=== PATIENT | male | born 1980 | race Caucasian/White ===

== ENCOUNTER 2018-08-02 21:20 | Inpatient (IN) | payer SELFPAY ==
[~2018-08-02] VITALS: Ht 182.9 cm; Wt 86.2 kg
[2018-08-02 21:43] LABS: BASOPHILS # (AUTO) 0.1 (0.0-0.1); BASOPHILS % 0.4 % (0.0-1.0); HEMATOCRIT 43.4 % (38.2-49.6); HEMOGLOBIN 13.9 g/dL (14.0-18.0); LYMPHOCYTES # (AUTO) 2.3 (1.0-3.2); MEAN CORPUSCULAR HEMOGLOBIN 29.6 pg (28-32); MEAN CORPUSCULAR VOLUME 92.3 fL (81-99); MONOCYTES % 4.1 % (4.4-11.3); NEUTROPHILS # (AUTO) 19.5 (2.1-6.9); NEUTROPHILS % 84.4 % (38.7-80.0); PLATELET COUNT 415 x10e3/uL (140-360); RED CELL DISTRIBUTION WIDTH 12.4 % (11.7-14.4)
[2018-08-02] MEDS ORDERED: SODIUM CHLORIDE 0.9% 1000ML 1,000 ML IV ONE (21:45)
[2018-08-02 22:16] LABS: ALANINE AMINOTRANSFERASE 31 IU/L (0-55); ALBUMIN 3.9 g/dL (3.5-5.0); ALBUMIN/GLOBULIN RATIO 1.3 (0.8-2.0); ALKALINE PHOSPHATASE 117 IU/L (40-150); ANION GAP 37.5 mmol/L (8-16); BLOOD UREA NITROGEN 37 mg/dL (7-26); BUN/CREATININE RATIO 23 (6-25); CALCIUM 8.9 mg/dL (8.4-10.2); CHLORIDE 91 mmol/L (98-107); CREATINE KINASE 95 IU/L (30-200); CREATININE, SERUM 1.62 mg/dL (0.72-1.25); EST GLOMERULAR FILTRATION RATE 48 ML/MIN (60-); SODIUM 127 mmol/L (136-145)
[2018-08-02 22:23] LABS: CARBON DIOXIDE 5 mmol/L (22-29); POTASSIUM 6.5 mmol/L (3.5-5.1)
[2018-08-02] MEDS ORDERED: POTASSIUM CHLORIDE 20MEQ/100ML 200 ML IV PRN (22:30)
[2018-08-02] MEDS ORDERED: INSULIN DETEMIR 100 UNIT/ML PEN SQ PRN (22:30)
[2018-08-02] MEDS ORDERED: MAGNESIUM SULF 1GRAM/DEXTROSE 100 ML IV PRN (22:30)
[2018-08-02] MEDS ORDERED: INSULIN REGULAR, HUMAN 3ML VL 100 UNIT in SODIUM CHLORIDE 0.9% 99 ML IV SCH ×2 (22:30)
[2018-08-02] MEDS: SODIUM CHLORIDE 0.9% 1000ML 1,000 ML IV SCH (22:50)
--- NOTE | 2018-08-02 23:12 | Diagnostic Imaging Report ---
EXAM: CHEST SINGLE (PORTABLE), AP 1 view INDICATION: Shortness of breath COMPARISON: None FINDINGS: LINES/TUBES: None LUNGS: No consolidations or edema. PLEURA: No effusions or pneumothorax. HEART AND MEDIASTINUM: Normal size and contour. BONES AND SOFT TISSUES: No acute findings. IMPRESSION: No acute thoracic abnormality. Signed by: Dr. Elena Collazo M.D. on 08/02/2018 11:09 PM
[2018-08-02 23:22] LABS: BACTERIA,URINE FEW /HPF; BILIRUBIN,URINE NEGATIVE (NEGATIVE); CLARITY,URINE CLEAR (CLEAR); COLOR,URINE YELLOW (YELLOW); EPITHELIAL CELLS,URINE RARE /LPF; KETONES,URINE 3+ (NEGATIVE); LEUKOCYTE ESTERASE ,URINE NEGATIVE (NEGATIVE); NITRITE,URINE NEGATIVE (NEGATIVE); PROTEIN,URINE DIPSTICK NEGATIVE (NEGATIVE); URINE UROBILINOGEN 0.2 mg/dL (0.2 - 1)
[2018-08-02] MEDS ORDERED: ONDANSETRON HCL INJ 2 MG/ML VIAL IV PRN (23:45)
[2018-08-02] MEDS: CEFTRIAXONE SOD 1 GM VIAL IV SCH (23:54)
[2018-08-03] VITALS (13 sets, daily range): BP systolic 125–155; BP diastolic 72–109
[2018-08-03 00:09] LABS: ANION GAP 33.8 mmol/L (8-16); CALCIUM 8.5 mg/dL (8.4-10.2); CREATININE, SERUM 1.61 mg/dL (0.72-1.25); MAGNESIUM 2.5 MG/DL (1.3-2.1); POTASSIUM 5.8 mmol/L (3.5-5.1)
[2018-08-03] MEDS: SODIUM CHLORIDE 0.9% 1000ML 1,000 ML IV SCH ×3 (02:35→10:22)
[2018-08-03 05:06] LABS: ANION GAP 18.3 mmol/L (8-16); BLOOD UREA NITROGEN 30 mg/dL (7-26); BUN/CREATININE RATIO 23 (6-25); CALCIUM 8.5 mg/dL (8.4-10.2); CARBON DIOXIDE 16 mmol/L (22-29); CHLORIDE 105 mmol/L (98-107); CREATININE, SERUM 1.29 mg/dL (0.72-1.25); EST GLOMERULAR FILTRATION RATE > 60 ML/MIN (60-); GLUCOSE 264 mg/dL (74-118); POTASSIUM 4.3 mmol/L (3.5-5.1); SODIUM 135 mmol/L (136-145)
[2018-08-03] MEDS: DEXTROSE 5%/0.45% SOD CHL 1,000 ML IV SCH ×4 (05:50→22:25)
[2018-08-03] MEDS: ACETAMINOPHEN 325 MG TAB PO PRN ×2 (08:38→22:39)
[2018-08-03 08:54] LABS: HEMATOCRIT 36.2 % (38.2-49.6); HEMOGLOBIN 12.2 g/dL (14.0-18.0); MEAN CORPUSCULAR HEMOGLOBIN 29.3 pg (28-32); MEAN CORPUSCULAR HGB CONC 33.7 g/dL (31-35); MEAN CORPUSCULAR VOLUME 86.8 fL (81-99); PLATELET COUNT 304 x10e3/uL (140-360); RED BLOOD COUNT 4.17 x10e6/uL (4.3-5.7); RED CELL DISTRIBUTION WIDTH 12.8 % (11.7-14.4)
[2018-08-03 09:13] LABS: ANION GAP 12.8 mmol/L (8-16); BLOOD UREA NITROGEN 27 mg/dL (7-26); BUN/CREATININE RATIO 22 (6-25); CALCIUM 8.6 mg/dL (8.4-10.2); CARBON DIOXIDE 19 mmol/L (22-29); CHLORIDE 109 mmol/L (98-107); CREATININE, SERUM 1.22 mg/dL (0.72-1.25); EST GLOMERULAR FILTRATION RATE > 60 ML/MIN (60-); GLUCOSE 104 mg/dL (74-118); MAGNESIUM 2.2 MG/DL (1.3-2.1); POTASSIUM 3.8 mmol/L (3.5-5.1); SODIUM 137 mmol/L (136-145)
[2018-08-03] MEDS ORDERED: DEXTROSE 50% SYRINGE 50 ML IV ONE (11:52)
[2018-08-03 13:30] LABS: ANION GAP 15.8 mmol/L (8-16); BLOOD UREA NITROGEN 23 mg/dL (7-26); BUN/CREATININE RATIO 21 (6-25); CALCIUM 7.9 mg/dL (8.4-10.2); CARBON DIOXIDE 19 mmol/L (22-29); CHLORIDE 105 mmol/L (98-107); CREATININE, SERUM 1.09 mg/dL (0.72-1.25); EST GLOMERULAR FILTRATION RATE > 60 ML/MIN (60-); GLUCOSE 131 mg/dL (74-118); MAGNESIUM 1.9 MG/DL (1.3-2.1); POTASSIUM 3.8 mmol/L (3.5-5.1); SODIUM 136 mmol/L (136-145)
[2018-08-03 13:47] LABS: ANISOCYTOSIS SLIGHT; HOWELL-JOLLY BODIES FEW; HYPOCHROMASIA SLIGHT; LYMPHOCYTES % (MANUAL) 19 % (19-48); MONOCYTES % (MANUAL) 3 % (3.4-9.0); NEUTROPHILS % (MANUAL) 77 % (40-74); PLATELET ESTIMATE ADEQUATE; RBC MORPHOLOGY COMMENT NORMAL
[2018-08-03 13:48] LABS: PLATELET MORPHOLOGY COMMENT NORMAL
[2018-08-03 13:58] LABS: CHOL/HDL RATIO 2.7 (3.9-4.7)
[2018-08-03 14:13] LABS: FREE T4 (FREE THYROXINE) 0.8 ng/dL (0.9-1.8); THYROID STIMULATING HORMONE 0.251 uIU/mL (0.350-4.940)
--- NOTE | 2018-08-03 14:59 | Consultation ---
DATE OF CONSULTATION: August 03, 2018 REASON FOR CONSULTATION: This patient has DKA, concern about sepsis. HISTORY OF PRESENT ILLNESS: This patient who is a 38-year-old white male with history of diabetes mellitus, comes in to the emergency room on August 02 at [facility], said he was not feeling well. The patient has nausea and vomiting. Apparently, he is known to have history of diabetes mellitus type 1. He is on insulin, but he is not taking any recently. He has not seen a physician. Comes in the emergency room because he was feeling really bad. When he first came to the emergency room, there was no fever, no chills. There was just some nausea and vomiting, but also he was just feeling bad. Patient was admitted, started on antibiotic. He is sleeping now. LABORATORY DATA: Reviewed. On admission, his white count 23.1, hemoglobin 13.9, hematocrit 43, platelets of 415, came down to white count of 14.24 and hemoglobin 12.2. Sodium 136, potassium 3.8, creatinine of 1.09, glucose 131. Hemoglobin A1c was 9.2. Lactic acid was 66.5. Liver enzymes within normal limits. Blood cultures still pending. Chest x-ray showed no acute abnormality. Patient was admitted, started on Tylenol, Rocephin and insulin. PHYSICAL EXAMINATION GENERAL: He is currently sleepy, but easily arousable. No complaints. VITALS: Stable, afebrile since admission. HEENT: He is not icteric. NECK: Supple. CHEST: Clear. HEART: S1 and S2. No murmur. ABDOMEN: Soft. Bowel sounds present. No tenderness. EXTREMITIES: No edema. SKIN: No rash. His UA was positive for glucose, ketones, blood and wbc. IMPRESSION AND PLAN: Diabetes mellitus, urinary tract infection, concern about diabetic ketoacidosis, and concern about sepsis on admission. He is currently on Rocephin. I agree with that for time being. Await the blood cultures. We will reassess again in the morning. Agree with IV fluids. We will follow. Job#: [id number] DONNELL
[2018-08-03] MEDS: INSULIN LISPRO 100 UNIT/1 ML 3ML VIAL SQ SCH ×2 (15:25→21:00)
--- NOTE | 2018-08-03 15:39 | Consultation ---
DATE OF CONSULTATION: August 03, 2018 ENDOCRINE CONSULTATION PATIENT OF: Dr. Miner. Thank you very much for referring this patient. HPI: This is a 38-year-old white male gentleman who is referred to me for evaluation of diabetes mellitus and diabetic ketoacidosis. Most of the history is available from the chart. Patient is sleepy and is not able to give us a good history. Patient is a known case of type 1 diabetes mellitus for almost 12 years and has not been able to take the insulin for the last few days. He is on NPH and regular insulin. Patient also has history of substance abuse. He came to the hospital with nausea and vomiting. His blood sugar was 726 at the time of admission, anion gap was 37.5, and lactic acid levels were elevated. The potassium was 6.5. Patient also has history of hypertension and hyperlipidemia. PHYSICAL EXAMINATION GENERAL: Today, the patient is sleepy. He is arousable on painful stimulus. VITAL SIGNS: His heart rate is around 100, blood pressure is 130/80 mmHg. HEENT: Essentially unremarkable. Thyroid is palpable. Clinically, he is near euthyroid. CHEST: Bilateral vesicular breathing. Has mild bronchospasm. CARDIOVASCULAR: First and second heart sound. There is no third or fourth heart sound. Ejection sound grade 2/6. 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 CLINICAL IMPRESSION 1. Diabetes mellitus type 1. 2. Diabetic ketoacidosis. 3. Noncompliance with medications. 4. History of substance abuse. 5. Hypertension. PLAN: At this time is to continue the insulin drip. Monitor his blood sugars closely. We will also do a hemoglobin A1c and thyroid function tests and advance his diet slowly. Thanks for referring this patient. I will be following this patient with you. Job#: [id number] [facility]LEJANDRO PACE
[2018-08-03 17:01] LABS: HIV 1&2 AB SCREEN NON-REACTIVE (NONREACTIVE)
[2018-08-03] MEDS: CEFTRIAXONE SOD 1 GM VIAL IV SCH (23:00)
[2018-08-04 00:40] VITALS: BP 125/82
[2018-08-04 05:07] LABS: ANION GAP 13.4 mmol/L (8-16); BLOOD UREA NITROGEN 14 mg/dL (7-26); BUN/CREATININE RATIO 17 (6-25); CALCIUM 8.6 mg/dL (8.4-10.2); CARBON DIOXIDE 22 mmol/L (22-29); CHLORIDE 109 mmol/L (98-107); CREATININE, SERUM 0.83 mg/dL (0.72-1.25); EST GLOMERULAR FILTRATION RATE > 60 ML/MIN (60-); GLUCOSE 156 mg/dL (74-118); POTASSIUM 3.4 mmol/L (3.5-5.1); SODIUM 141 mmol/L (136-145)
[2018-08-04] MEDS: DEXTROSE 5%/0.45% SOD CHL 1,000 ML IV SCH (06:04)
[2018-08-04 07:20] VITALS: BP 136/86
[2018-08-04 08:12] VITALS: BP 136/86
[2018-08-04] MEDS: INSULIN LISPRO 100 UNIT/1 ML 3ML VIAL SQ SCH (08:12)
--- OUTSIDE RECORDS SUMMARY | 2018-08-07 13:15 | XMS REPORT ---
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 Allergies, Adverse Reactions, Alerts This patient has no known allergies or adverse reactions. Medications This patient has no known medications. Results Test Description Test Time Test Comments Text Results Atomic Results Result Comments CHEST SINGLE (PORTABLE) 2018-08-02 23:09:00 [place] [address] Patient Name: DAX VILLARREAL MR #: [id number] : 1980 Age/Sex: 38/M Req #: [id number] Adm Physician: Ordered by: INGRID KUMAR MD Report #: [id number] Location: ER Room/Bed: Procedure: [id number] DX/CHEST SINGLE (PORTABLE) Exam Date: 08/02/18 Exam Time: 2149 REPORT STATUS: Signed EXAM: CHEST SINGLE (PORTABLE), AP 1 view INDICATION: Shortness of breath COMPARISON: None FINDINGS: LINES/TUBES: None LUNGS: No consolidations or edema. PLEURA: No effusions or pneumothorax. HEART AND MEDIASTINUM: Normal size and contour. BONES AND SOFT TISSUES: No acute findings. IMPRESSION: No acute thoracic abnormality. Signed by: Dr. Javy Corona M.D. on 08/02/2018 11:09 PM Dictated By: JAVY CORONA MD 08 Transcribed By: TIMBO on 08/02/182308 COPY TO: INGRID KUMAR MD
--- NOTE | 2018-10-19 15:23 | Discharge Summary ---
Mr. Sequeira is a 38-year-old man with a history of diabetes, hypertension, hyperlipidemia came to the emergency room complaining of vomiting. He was found to have elevated blood sugar. White count was 23.14. ADMITTING DIAGNOSES 1. Diabetic ketoacidosis. 2. Leukocytosis. 3. Rule out sepsis. 4. Urinary tract infection. 5. Dehydration. 6. Acute renal failure. Infectious disease and endocrinology consult was requested. The patient was seen by Dr. Rueda and started on IV Rocephin. Also, seen by Dr. Wilkes. On August 04, 2018, before I could even see the patient, the patient decided to leave against medical advice. So, patient signed all the papers and left against medical advice. He was instructed to follow up with his PCP and to take the treatment for his diabetes as directed. Patient has apparently a history of drug abuse. Like I said, he refused to continue to take the IV fluids, the insulin, and to continue care in the hospital. He left against medical advice. Job#: [id number] LORENZO
== END 2018-08-04 09:43 | disposition left against medical advice (07) | DRG 638 ==
LOC: ER 21:20 → ERHOLD 23:34 → IMCU 08-03 00:11
PROVIDERS: ADMIT Internal Medicine; ATTEND Internal Medicine
DX: E10.10 Type 1 diabetes mellitus with ketoacidosis without coma (principal); N17.9 Acute kidney failure, unspecified; N39.0 Urinary tract infection, site not specified; Z79.4 Long term (current) use of insulin; Z91.14 Patient's other noncompliance with medication regimen; I10 Essential (primary) hypertension; E10.42 Type 1 diabetes mellitus with diabetic polyneuropathy; E78.5 Hyperlipidemia, unspecified; E86.0 Dehydration; F19.10 Other psychoactive substance abuse, uncomplicated
CPT/HCPCS: 36415; 71045; 80048; 80053; 80061; 81001; 82550; 82553; 82948; 83036; 83605; 83735; 84439; 84443; 84484; 85007; 85025; 85027; 87040; 87390; 93005; 99285; G0433; G0435; J0696; J7030; J7050; J7799